=== PATIENT | male | born 1965 | race Caucasian/White ===

== ENCOUNTER → 2016-03-16 | Outpatient (CLI) | payer MEDICARE, OTHER ==
--- NOTE | 2016-03-16 18:11 | XR ---
EXAMINATION TYPE: XR hand complete RT DATE OF EXAM: 03/16/2016 6:02 PM COMPARISON: NONE HISTORY: Pain and swelling TECHNIQUE: 3 views FINDINGS: I see no fracture nor dislocation. Metacarpals are intact. There is a 2 mm metallic density adjacent to the PIP joint of the middle finger. There are no erosions. IMPRESSION: Small metal foreign body in the middle finger. No fracture seen. No evidence of osteomyel itis.
== END | disposition home or self-care (01) ==
LOC: RADXRWHC 16:58
PROVIDERS: ATTEND Physician Assistant
DX: S60.452A Superficial foreign body of right middle finger, initial encounter (principal)

== ENCOUNTER → 2017-09-30 | Outpatient (CLI) | payer MEDICARE, OTHER | END | disposition home or self-care (01) | LOC: LABWHC1 16:22 | PROVIDERS: ATTEND Internal Medicine | DX: K50.80 Crohn's disease of both small and large intestine without complications (principal) | CPT/HCPCS: 36415; 86140 ==

== ENCOUNTER 2017-11-05 20:43 | Emergency (ER) | payer MEDICARE, OTHER ==
[2017-11-05 20:49] VITALS: BP 127/73; PULSE 67; RESP 18; TEMP 97.9
--- NOTE | 2017-11-05 21:04 | ED ---
Wound/Laceration HPI - General Source: patient, RN notes reviewed Mode of arrival: ambulatory Limitations: no limitations <Laquita Staton - Last Filed: 11/05/17 21:42> <Yamile Green - Last Filed: 11/05/17 23:08> - General Chief Complaint: Wound/Laceration Stated Complaint: thumb lac Time Seen by Provider: 11/05/17 20:50 - History of Present Illness Initial Comments: This is a 52-year-old male who presents to the emergency department with chief complaint of left thumb laceration. Patient states that at 4:30 this evening he was cutting wood with a circular saw. He states that he cut the tip of his left thumb. He states that he was able to get the bleeding under control by applying a butterfly and a bandage. States he is up-to-date with his tetanus vaccination which she reports to have received last month. Denies any other injuries or trauma. Denies numbness or tingling. Reports normal range of motion of the finger. Refuses an x-ray. Denies recent fevers or chills, chest pain or shortness of breath, abdominal pain, nausea or vomiting. (Laquita Staton) - Related Data Home Medications Medication Instructions Recorded Confirmed Diphenox-Atrop 2.5-0.025 mg 1 tab PO BID PRN 08/27/13 08/27/13 [Lomotil] HYDROcodone/APAP 7.5-325MG [[place] 1 each PO Q4H PRN 08/27/13 08/28/13 7.5-325] Ibuprofen [Motrin] 800 mg PO Q8HR PRN 08/27/13 08/28/13 Insulin Aspart [NovoLOG ACHS 08/27/13 08/28/13 (formulary)] Insulin Glargine [Lantus] 10 unit SQ DAILY 08/27/13 08/28/13 Levothyroxine Sodium [Synthroid] 25 mcg PO DAILY 08/27/13 08/28/13 Previous Rx's Medication Instructions Recorded Cefuroxime Axetil [Ceftin] 500 mg PO BID #14 tablet 08/31/13 Multivitamins, Thera [Multivitamin 1 each PO DAILY@1200 #30 tablet 08/31/13 (formulary)] Allergies Allergy/AdvReac Type Severity Reaction Status Date / Time No Known Allergies Allergy Verified 11/05/17 20:50 Review of Systems ROS Other: All systems not noted in ROS Statement are negative. <Laquita Staton - Last Filed: 11/05/17 21:42> ROS Other: All systems not noted in ROS Statement are negative. <Yamile Green P - Last Filed: 11/05/17 23:08> ROS Statement: Those systems with pertinent positive or pertinent negative responses have been documented in the HPI. Past Medical History Past Medical History: Diabetes Mellitus Additional Past Medical History / Comment(s): colitis, one kidney congenital History of Any Multi-Drug Resistant Organisms: None Reported Past Surgical History: Bowel Resection Additional Past Surgical History / Comment(s): Patient states he had a j-pouch in 1998 Past Anesthesia/Blood Transfusion Reactions: No Reported Reaction Past Psychological History: No Psychological Hx Reported Smoking Status: Never smoker Past Alcohol Use History: Rare Past Drug Use History: Marijuana <Laquita Staton - Last Filed: 11/05/17 21:42> General Exam Limitations: no limitations <Laquita Staton - Last Filed: 11/05/17 21:42> <Yamile Green P - Last Filed: 11/05/17 23:08> - General Exam Comments Initial Comments: General: Awake and alert, well-developed; in no apparent distress. HEENT: Head atraumatic, normocephalic. Pupils are equal, round and reactive to light. Extraocular movements intact. Oropharynx moist without erythema or exudate. Neck: Supple. Normal ROM. Cardiovascular: Regular rate and rhythm. No murmurs, rubs or gallops. Chest symmetrical. Respiratory: Lungs clear to auscultation bilaterally. No wheezes, rales or rhonchi. Normal respiratory effort with no use of accessory muscles. Musculoskeletal: Normal ROM of left thumb. Approximately 1 cm jagged laceration distal tip of the left thumb. No active bleeding. Sensation is intact. Radial pulses are 2+ equal and palpable bilaterally. Skin: [place], warm and dry with laceration as noted above. Neurological: Alert and oriented x3. CN II-XII grossly intact. Speech is fluent and answers are appropriate. No focal neuro deficits. Psychiatric: Normal mood and affect. No overt signs of depression or anxiety noted. (Laquita Staton) Vital Signs 11/05/17 20:46 Temperature 97.9 F Pulse Rate 67 Respiratory 18 Rate Blood Pressure 127/73 O2 Sat by Pulse 100 Oximetry Procedures - Laceration Laceration #1 Consent Obtained: verbal consent Indication: laceration Site: hand (Distal left thumb) Size (cm): 1 Description: flap, irregular Depth: simple, single layer Anesthetic Used: lidocaine 1% Anesthesia Technique: local infiltration Amount (mls): 1 Pre-repair: wound explored, irrigated extensively, deep structures intact Type of Sutures: nylon Size of Sutures: 4-0 Number of Sutures: 2 Technique: simple, interrupted Patient Tolerated Procedure: well, no complications <Laquita Staton - Last Filed: 11/05/17 21:42> Medical Decision Making <Laquita Staton - Last Filed: 11/05/17 21:42> <Yamile Green - Last Filed: 11/05/17 23:08> - Medical Decision Making This is a 52-year-old male who presents to the emergency department with chief complaint of left thumb laceration. Patient sustained a jagged laceration to the distal tip of his left thumb. Normal range of motion and is neurovascularly intact. 2 sutures are placed and patient tolerated well without complication. Patient refused an x-ray of the finger. He refuses antibiotics. Vitals are stable and patient is no acute distress. He will be discharged home at this time. Recommended having sutures removed in 10-14 days. He is in agreement with plan. All questions answered. (Laquita Staton) I was available for consultation in the emergency department. The history and physical exam were done by the midlevel provider. I was consulted for this patient's care. I reviewed the case with the midlevel provider and based on their presentation of the patient, I agree with the assessment, medical decision making and plan of care as documented. (Yamile Green) Disposition Is patient prescribed a controlled substance at d/c from ED?: No Time of Disposition: 21:46 <Laquita Staton - Last Filed: 11/05/17 21:42> <Yamile Green - Last Filed: 11/05/17 23:08> Clinical Impression: Thumb laceration Disposition: HOME SELF-CARE Condition: Good Instructions: Finger Laceration (ED) Additional Instructions: Please have sutures removed in 10-14 days. Please monitor for any signs of infection. Please follow up with primary care provider within 1-2 days. Return to emergency department if symptoms should worsen or any concerns arise. Referrals: Zachary Marte MD [Primary Care Provider] - 1-2 days
== END 2017-11-05 21:58 | disposition home or self-care (01) ==
LOC: EC 20:43
DX: S61.012A Laceration without foreign body of left thumb without damage to nail, initial encounter (principal); E11.9 Type 2 diabetes mellitus without complications; Z79.4 Long term (current) use of insulin; Z79.899 Other long term (current) drug therapy; W31.2XXA Contact with powered woodworking and forming machines, initial encounter; Y93.89 Activity, other specified
CPT/HCPCS: 12001; 99282

== ENCOUNTER 2017-12-09 16:47 | Emergency (ER) | payer MEDICARE, OTHER ==
[2017-12-09] MEDS ORDERED: SODIUM CHLORIDE 0.9% 1,000 ML IV ONE ×2 (17:51→20:02)
[2017-12-09] MEDS ORDERED: KETOROLAC 30 MG/ML 1 ML VIAL IVP STA (17:51)
[2017-12-09] MEDS ORDERED: ONDANSETRON 4 MG/2 ML VIAL IVP STA (17:51)
--- NOTE | 2017-12-09 17:59 | ED ---
General Adult HPI - General Chief complaint: Abdominal Pain Stated complaint: Pain in right side, headache, Diabetic Time Seen by Provider: 12/09/17 17:30 Source: patient Mode of arrival: wheelchair Limitations: no limitations - History of Present Illness Initial comments: 52-year-old male with past medical history of type 1 diabetes, chronic migraines ,ulcerative coliitis and one kidney (congenital malformation) presenting today for chief complaint of right-sided flank plain and headache. Patient states that he woke up at 3AM with right-sided flank pain, he stated that he has had blood in his urine for the past 2 months as been seen by his primary care who has done imaging and laboratory studies, he states that they stated he did not need urology f/u at this time. Pt describes the pain as sharp without radiation. Pt states that the pain is gone now. Pt admits to headache, he states it is not the worse headache of his life and came on gradually. Pt has had episodes of vomiting not allowing him to keep down pain medication to alleviate the headache. Pt states that he usually vomits and is sensitive to light with his migraines. Pt was concerned about the right sided pain in the middle of the night so he presented for evaluation. Pt denies current right flank pain. Pt denies fever, chills, urgency, frequency, dysuria, abdominal pain , chest pain, dizziness, shortness of breath, palpitations, nuchal rigidity, speech/gait changes, parathesias/muscle weakness of the upper or lower extremities, facial asymmetry or any other associated symptoms. Upon arrival pt VS stable. - Related Data Home Medications Medication Instructions Recorded Confirmed Diphenox-Atrop 2.5-0.025 mg 1 tab PO BID PRN 08/27/13 12/09/17 [Lomotil] Ibuprofen [Motrin] 800 mg PO Q8HR PRN 08/27/13 12/09/17 Insulin Aspart [NovoLOG See Protocol SQ TID 08/27/13 12/09/17 (formulary)] Insulin Glargine [Lantus] 13 unit SQ HS 08/27/13 12/09/17 Levothyroxine Sodium [Synthroid] 25 mcg PO DAILY 08/27/13 12/09/17 Adalimumab [Humira Pen] 40 mg SQ FR 12/09/17 12/09/17 Allergies Allergy/AdvReac Type Severity Reaction Status Date / Time No Known Allergies Allergy Verified 12/09/17 17:58 Review of Systems ROS Statement: Those systems with pertinent positive or pertinent negative responses have been documented in the HPI. ROS Other: All systems not noted in ROS Statement are negative. Constitutional: Denies: fever, chills, night sweats Eyes: Denies: eye pain, vision change ENT: Denies: ear pain, throat pain, hearing loss Respiratory: Denies: cough, dyspnea, wheezes, hemoptysis, stridor Cardiovascular: Denies: chest pain, palpitations, dyspnea on exertion, orthopnea , edema Endocrine: Denies: fatigue Gastrointestinal: Reports: nausea, vomiting. Denies: abdominal pain, diarrhea, constipation, hematemesis, melena, hematochezia Genitourinary: Reports: hematuria (x2 months). Denies: urgency, dysuria, frequency Musculoskeletal: Reports: as per HPI (right sided flank pain), back pain Skin: Denies: rash, lesions Neurological: Denies: headache, weakness, numbness, paresthesias, confusion Past Medical History Past Medical History: Diabetes Mellitus Additional Past Medical History / Comment(s): colitis, one kidney congenital History of Any Multi-Drug Resistant Organisms: None Reported Past Surgical History: Bowel Resection Additional Past Surgical History / Comment(s): Patient states he had a j-pouch in 1998 Past Anesthesia/Blood Transfusion Reactions: No Reported Reaction Past Psychological History: No Psychological Hx Reported Smoking Status: Never smoker Past Alcohol Use History: Rare Past Drug Use History: Marijuana General Exam - General Exam Comments Initial Comments: General: The patient is awake and alert, in no distress, and does not appear acutely ill. Eye: Pupils are equal, round and reactive to light, extra-ocular movements are intact. No nystagmus. There is normal conjunctiva bilaterally. No signs of icterus. Ears, nose, mouth and throat: There are moist mucous membranes and no oral lesions. Neck: The neck is supple, there is no tenderness or JVD. Cardiovascular: There is a regular rate and rhythm. No murmur, rub or gallop is appreciated. Respiratory: Lungs are clear to auscultation, respirations are non-labored, breath sounds are equal. No wheezes, stridor, rales, or rhonchi. Gastrointestinal: Soft, non-distended, non-tender abdomen without masses or organomegaly noted. There is no rebound or guarding present. No CVA tenderness. Bowel sounds are unremarkable. Musculoskeletal: Normal ROM, no tenderness. Strength 5/5. Sensation intact. radial pulses equal bilaterally 2+. Neurological: A&O x 3. CN II-XII intact, There are no obvious motor or sensory deficits. Coordination appears grossly intact. Speech is normal. Skin: Skin is warm and dry and no rashes or lesions are noted. Psychiatric: Cooperative, appropriate mood & affect, normal judgment. Limitations: no limitations Course Vital Signs 12/09/17 12/09/17 12/09/17 16:58 19:30 20:34 Temperature 98 F Pulse Rate 86 106 H 65 Respiratory 18 20 18 Rate Blood Pressure 111/75 105/65 113/66 O2 Sat by Pulse 98 99 98 Oximetry 12/09/17 21:39 Temperature 97.9 F Pulse Rate 70 Respiratory 18 Rate Blood Pressure 127/86 O2 Sat by Pulse 97 Oximetry Medical Decision Making - Medical Decision Making 52yo male with cc of right flank pain, pt appears well, nontoxic. Afebrile upon arrival, HR WNL. Pt denies current symptoms of right flank. Pt admits to CANELA, dull aching. No focal neurological deficits, or CVA tenderness. Pt given fluids and toradol. UA revealed RBC, WBC/leukocyteestersse and no nitrates. Pt denies urinary symptoms. Culture pending. CBC unremarkable. Cr WNL. KUB (-). CT abdomen pelvis revealed no abnormalities of right kidney, no stranding. No renal calculi. Case discussed with Dr. Bernardo who reviewed all labs findings, case discussed in detail. Dr. Bernardo agreed with impression and plan. At this time we feel pt is stable for discharge with primary care f/u in 1-2 days as well as urology f/u in next 2-3 days. scripts for + WBC in UA for possible underlying UTI was not given to patient prior to d/c. Prescription was called over to patient preferred pharmacy. Pr called and I spoke to Mr Coreas personally who is aware of the prescription for keflex 500mg QID. - Lab Data Result diagrams: 12/09/17 17:27 12/09/17 17:27 Lab Results 12/09/17 12/09/17 12/09/17 Range/Units 17:27 17:27 17:27 WBC 9.5 (3.8-10.6) k/uL RBC 4.83 (4.30-5.90) m/uL Hgb 14.6 (13.0-17.5) gm/dL Hct 44.4 (39.0-53.0) % MCV 92.0 (80.0-100.0) fL MCH 30.2 (25.0-35.0) pg MCHC 32.9 (31.0-37.0) g/dL RDW 12.9 (11.5-15.5) % Plt Count 237 (150-450) k/uL Neutrophils % 86 % Lymphocytes % 9 % Monocytes % 3 % Eosinophils % 1 % Basophils % 0 % Neutrophils # 8.1 H (1.3-7.7) k/uL Lymphocytes # 0.9 L (1.0-4.8) k/uL Monocytes # 0.3 (0-1.0) k/uL Eosinophils # 0.1 (0-0.7) k/uL Basophils # 0.0 (0-0.2) k/uL Sodium 139 (137-145) mmol/L Potassium 4.5 (3.5-5.1) mmol/L Chloride 106 (98-107) mmol/L Carbon Dioxide 26 (22-30) mmol/L Anion Gap 7 mmol/L BUN 11 (9-20) mg/dL Creatinine 0.91 (0.66-1.25) mg/dL Est GFR (CKD-EPI)AfAm >90 (>60 ml/min/1.73 sqM) Est GFR (CKD-EPI)NonAf >90 (>60 ml/min/1.73 sqM) Glucose 181 H (74-99) mg/dL Calcium 9.0 (8.4-10.2) mg/dL Total Bilirubin 1.0 (0.2-1.3) mg/dL AST 23 (17-59) U/L ALT 26 (21-72) U/L Alkaline Phosphatase 77 (38-126) U/L Total Protein 6.5 (6.3-8.2) g/dL Albumin 3.2 L (3.5-5.0) g/dL Urine Color Urine Appearance (Clear) Urine pH (5.0-8.0) Ur Specific [place] (1.001-1.035) Urine Protein (Negative) Urine Glucose (UA) (Negative) Urine Ketones (Negative) Urine Blood (Negative) Urine Nitrite (Negative) Urine Bilirubin (Negative) Urine Urobilinogen (<2.0) mg/dL Ur Leukocyte Esterase (Negative) Urine RBC (0-5) /hpf Urine WBC (0-5) /hpf Urine Mucus (None) /hpf Acetone, Qual Negative (Negative) 12/09/17 Range/Units 19:23 WBC (3.8-10.6) k/uL RBC (4.30-5.90) m/uL Hgb (13.0-17.5) gm/dL Hct (39.0-53.0) % MCV (80.0-100.0) fL MCH (25.0-35.0) pg MCHC (31.0-37.0) g/dL RDW (11.5-15.5) % Plt Count (150-450) k/uL Neutrophils % % Lymphocytes % % Monocytes % % Eosinophils % % Basophils % % Neutrophils # (1.3-7.7) k/uL Lymphocytes # (1.0-4.8) k/uL Monocytes # (0-1.0) k/uL Eosinophils # (0-0.7) k/uL Basophils # (0-0.2) k/uL Sodium (137-145) mmol/L Potassium (3.5-5.1) mmol/L Chloride (98-107) mmol/L Carbon Dioxide (22-30) mmol/L Anion Gap mmol/L BUN (9-20) mg/dL Creatinine (0.66-1.25) mg/dL Est GFR (CKD-EPI)AfAm (>60 ml/min/1.73 sqM) Est GFR (CKD-EPI)NonAf (>60 ml/min/1.73 sqM) Glucose (74-99) mg/dL Calcium (8.4-10.2) mg/dL Total Bilirubin (0.2-1.3) mg/dL AST (17-59) U/L ALT (21-72) U/L Alkaline Phosphatase (38-126) U/L Total Protein (6.3-8.2) g/dL Albumin (3.5-5.0) g/dL Urine Color Red Urine Appearance Cloudy (Clear) Urine pH 5.5 (5.0-8.0) Ur Specific [place] 1.019 (1.001-1.035) Urine Protein 2+ H (Negative) Urine Glucose (UA) 3+ H (Negative) Urine Ketones 2+ H (Negative) Urine Blood Large H (Negative) Urine Nitrite Negative (Negative) Urine Bilirubin Negative (Negative) Urine Urobilinogen <2.0 (<2.0) mg/dL Ur Leukocyte Esterase Moderate H (Negative) Urine RBC >182 H (0-5) /hpf Urine WBC 47 H (0-5) /hpf Urine Mucus Many H (None) /hpf Acetone, Qual (Negative) Disposition Clinical Impression: Hematuria, Headache, Flank pain Disposition: HOME SELF-CARE Condition: Good Instructions: Hematuria (ED) Additional Instructions: Please use medication as discussed. Please follow-up with family doctor in the next 2 days, please follow-up with urology for blood in urine in the next 2-3 days, with Dr. Briceño. Please return to emergency room if the symptoms increase or worsen or for any other concerns. Is patient prescribed a controlled substance at d/c from ED?: No Referrals: Zachary Marte MD [Primary Care Provider] - 1-2 days Kranthi Briceño MD [STAFF PHYSICIAN] - 1-2 days Time of Disposition: 21:24
[2017-12-09 18:09] LABS: ALT 26 U/L (21-72); AST 23 U/L (17-59); Albumin 3.2 g/dL (3.5-5.0); Alkaline Phosphatase 77 U/L (38-126); Anion Gap 7 mmol/L; Blood Urea Nitrogen 11 mg/dL (9-20); Carbon Dioxide 26 mmol/L (22-30); Chloride 106 mmol/L (98-107); Glucose 181 mg/dL (74-99); Potassium 4.5 mmol/L (3.5-5.1); Sodium 139 mmol/L (137-145); Total Protein 6.5 g/dL (6.3-8.2)
[2017-12-09 18:13] LABS: Basophils % (A) 0 %; Eosinophils # (A) 0.1 k/uL (0-0.7); Eosinophils % (A) 1 %; HCT 44.4 % (39.0-53.0); HGB 14.6 gm/dL (13.0-17.5); Lymphocytes # (A) 0.9 k/uL (1.0-4.8); Lymphocytes % (A) 9 %; MCH 30.2 pg (25.0-35.0); MCHC 32.9 g/dL (31.0-37.0); Mean Platelet Volume 7.2; Monocytes # (A) 0.3 k/uL (0-1.0); Monocytes % (A) 3 %; Neutrophils # (A) 8.1 k/uL (1.3-7.7); Neutrophils % (A) 86 %; Platelet Count 237 k/uL (150-450); RBC 4.83 m/uL (4.30-5.90); RDW 12.9 % (11.5-15.5); WBC 9.5 k/uL (3.8-10.6)
--- NOTE | 2017-12-09 18:30 | XR ---
EXAMINATION TYPE: XR KUB DATE OF EXAM: 12/09/2017 COMPARISON: 03/09/2009 HISTORY: Right-sided flank pain TECHNIQUE: 2 views FINDINGS: There is no sign of intestinal obstruction or pneumoperitoneum. Fecal pattern is normal. Shalini ng bases are clear. There are no pathologic calcifications. IMPRESSION: Nonacute abdomen.
[2017-12-09 19:48] LABS: Appearance,Urine Cloudy (Clear); Bilirubin,Urine Negative (Negative); Blood,Urine Large (Negative); Color,Urine Red; Glucose,Urine (UA) 3+ (Negative); Leukocyte Esterase,Urine Moderate (Negative); Mucus,Urine Many /hpf; Nitrite,Urine Negative (Negative); PH, Urine 5.5 (5.0-8.0); Protein,Urine 2+ (Negative); RBC,Urine >182 /hpf (0-5); Specific Gravity,Urine 1.019 (1.001-1.035); Urobilinogen,Urine <2.0 mg/dL (<2.0)
[2017-12-09 19:53] LABS: Ketones,Urine 2+ (Negative)
[2017-12-09 20:36] VITALS: RESP 18
--- NOTE | 2017-12-09 20:59 | CT ---
EXAMINATION TYPE: CT abdomen pelvis w con DATE OF EXAM: 12/09/2017 COMPARISON: None HISTORY: rt flank pain/back pain/nausea/vomiting. pt has a rt kidney CT DLP: 678.1 mGycm Automated exposure control for dose reduction was used. TECHNIQUE: Helical acquisition of images was performed from the lung bases through the pelvis. CONTRAST: Performed without Oral Contrast and with IV Contrast, patient injected with 100 mL of Isovue 300. FINDINGS: Lung bases are clear. There is no pleural effusion. Heart size is normal. There is no pericardial eff usion. Liver spleen pancreas appear normal. Bile ducts are not dilated. Stomach appears normal. Gallbladder appears normal. There are clips in the right mid abdomen probably on the cecum. There is a single right kidney. Right kidney shows normal contrast opacification. There is no hydrone phrosis. There is no retroperitoneal adenopathy. Latter distends smoothly. There is no mesenteric skyler nopathy or edema. I see no intestinal wall thickening. There is previous surgery on the rectosigmoid colon. There is no inguinal hernia. There is no sign of free air. There is no ascites. Lumbar spine i s intact. Bony pelvis appears intact. IMPRESSION: SINGLE RIGHT KIDNEY WITH COMPENSATORY HYPERTROPHY. NO EVIDENCE OF RENAL MASS OR OBSTRUCTION. PREVIOUS LARGE BOWEL SURGERY. NO SIGN OF AN ACUTE ABDOMEN.
[2017-12-09 21:39] VITALS: BP 127/86; PULSE 70; TEMP 97.9
== END 2017-12-09 21:39 | disposition home or self-care (01) ==
LOC: EC 16:47
DX: R31.9 Hematuria, unspecified (principal); R51 Headache; H53.419 Scotoma involving central area, unspecified eye; R11.2 Nausea with vomiting, unspecified; M54.9 Dorsalgia, unspecified; Q60.0 Renal agenesis, unilateral; E10.9 Type 1 diabetes mellitus without complications; Z87.19 Personal history of other diseases of the digestive system; Z86.69 Personal history of other diseases of the nervous system and sense organs; Z98.890 Other specified postprocedural states; Z79.4 Long term (current) use of insulin; Z79.899 Other long term (current) drug therapy
CPT/HCPCS: 51798; 36415; 80053; 82009; 85025; 81001; 87086; 74018; 74177; 99284; 96374; 96375; 96361 ×2; J2405; J1885; Q9967

== ENCOUNTER → 2018-02-05 | Outpatient (CLI) | payer MEDICARE, OTHER ==
--- NOTE | 2018-02-05 10:44 | CT ---
EXAMINATION TYPE: CT abdomen pelvis wo con DATE OF EXAM: 02/05/2018 COMPARISON: 12/09/2017 HISTORY: Gross hematuria CT DLP: 311.80 mGycm Automated exposure control for dose reduction was used. TECHNIQUE: Helical acquisition of images was performed from the lung bases through the pelvis. FINDINGS: LUNG BASES: Small bleb is seen in the right lung base. LIVER/GB: Unenhanced morphology of the liver is unremarkable. Gallbladder demonstrates no cholelithia sis. PANCREAS: Unremarkable unenhanced morphology. SPLEEN: No splenomegaly. ADRENALS: No significant abnormality is seen. KIDNEYS: Again there is hypertrophy of the solitary right kidney. Bowel prolapses into the left renal fossa. No right-sided hydronephrosis or nephrolithiasis. ADENOPATHY: Given the limitation of lack of intravenous contrast there are no greater than 1 cm shor t axis lymph nodes in the abdomen or pelvis. There are few pelvic lymph nodes such as on series 3 milind ge 2018 measuring 7 mm on the right and on image 119 on the left measuring 6 mm that are prominent fo r the location. There are also nonenlarged lymph nodes seen scattered along the external and internal iliac chains. Nonenlarged scattered mesenteric lymph nodes are also noted predominantly within the c entral mesentery of the mid abdomen such as on series 3 image 80 and 83. REPRODUCTIVE ORGANS: Prostate gland is heterogenous containing central zone calcifications. URINARY BLADDER: Decompressed and incompletely evaluated. OSSEOUS STRUCTURES: Scattered nonspecific sclerotic foci are seen within the pelvis, most commonly r elated to small bone islands. Numerous lucent regions are seen within the pelvis CTs measuring up to 1 cm on the right on series 3 image 87 and 9 mm on the left on image 78. Very minimal wedging of the T12 vertebral body is stable from the prior. There is straightening of usual lumbar lordosis which ma y be on the basis of muscular sprain and/or spasm. BOWEL: There is subtotal colonic resection with what appears to be an ileocolic anastomosis and deco mpression of bowel at the anastomotic site in the low pelvis and right upper quadrant limiting evalua tion. No dilated bowel to suggest anastomotic stricture. Small bowel feces sign is seen throughout sc attered loops of small bowel indicative of increased transit time. Overall bowel is limited without o ral contrast administration. OTHER: Abdominal aorta is of normal course and caliber. IMPRESSION: 1. SOLITARY ENLARGED RIGHT KIDNEY WITH NO EVIDENCE OF NEPHROLITHIASIS OR HYDRONEPHROSIS GIVEN THIS PA TIENT'S COMPLAINT OF HEMATURIA. THE BOWEL IS DECOMPRESSED AND INCOMPLETELY EVALUATED. BARIUM, URINARY BLADDER ULTRASOUND, OR DIRECT VISUALIZATION COULD BE PERFORMED FOR FURTHER EVALUATION. 2. MULTIPLE LUCENT LESIONS WITHIN THE PELVIS MEASURING UP TO 1 CM ON THE RIGHT AND 9 MM ON THE LEFT. CONSIDERATION SHOULD BE GIVEN TO MULTIPLE MYELOMA.
== END | disposition home or self-care (01) ==
LOC: RADCTMAIN 07:59
PROVIDERS: ATTEND Urology
DX: N28.81 Hypertrophy of kidney (principal); M89.9 Disorder of bone, unspecified
CPT/HCPCS: 74176

== ENCOUNTER 2018-03-17 10:22 | Emergency (ER) | payer MEDICARE, OTHER ==
[2018-03-17 10:49] VITALS: RESP 18
[2018-03-17] MEDS ORDERED: SODIUM CHLORIDE 0.9% 1,000 ML IV STA ×2 (11:44)
[2018-03-17] MEDS ORDERED: ACETAMINOPHEN TAB 500 MG TAB PO STA (11:44)
[2018-03-17] MEDS ORDERED: ONDANSETRON 4 MG/2 ML VIAL IVP STA (11:44)
[2018-03-17] MEDS ORDERED: SODIUM CHLORIDE 0.9% 500 ML 500 ML IV STA (11:44)
[2018-03-17] MEDS ORDERED: KETOROLAC 30 MG/ML 1 ML VIAL IVP STA (11:46)
[2018-03-17 12:29] LABS: Basophils % (A) 0 %; Eosinophils % (A) 1 %; HCT 44.1 % (39.0-53.0); Lymphocytes # (A) 0.5 k/uL (1.0-4.8); Lymphocytes % (A) 7 %; MCH 30.9 pg (25.0-35.0); MCHC 34.1 g/dL (31.0-37.0); MCV 90.7 fL (80.0-100.0); Mean Platelet Volume 7.2; Monocytes # (A) 0.5 k/uL (0-1.0); Monocytes % (A) 8 %; Neutrophils # (A) 5.7 k/uL (1.3-7.7); Neutrophils % (A) 83 %; Platelet Count 226 k/uL (150-450); RBC 4.86 m/uL (4.30-5.90); RDW 13.2 % (11.5-15.5); WBC 6.8 k/uL (3.8-10.6)
[2018-03-17 12:32] LABS: ALT 30 U/L (21-72); AST 24 U/L (17-59); Albumin 3.5 g/dL (3.5-5.0); Alkaline Phosphatase 75 U/L (38-126); Anion Gap 8 mmol/L; Blood Urea Nitrogen 10 mg/dL (9-20); Calcium 8.8 mg/dL (8.4-10.2); Carbon Dioxide 23 mmol/L (22-30); Chloride 104 mmol/L (98-107); Glucose 342 mg/dL (74-99); Magnesium 1.4 mg/dL (1.6-2.3); Phosphorus 3.1 mg/dL (2.5-4.5); Potassium 5.2 mmol/L (3.5-5.1); Sodium 135 mmol/L (137-145); Total Bilirubin 0.9 mg/dL (0.2-1.3); Total Protein 6.7 g/dL (6.3-8.2)
[2018-03-17 12:52] LABS: Creatine Kinase 81 U/L (55-170)
--- NOTE | 2018-03-17 13:00 | ED ---
URI HPI - General Chief Complaint: Upper Respiratory Infection Stated Complaint: Cough, sore throat, weakness Time Seen by Provider: 03/17/18 11:22 Source: patient, RN notes reviewed, old records reviewed Mode of arrival: ambulatory Limitations: no limitations - History of Present Illness Initial Comments: This is a 52-year-old male the ER for evaluation. She presents today for evaluation regards to weakness. Fever. Sore throat. Congestion. Patient does have underlying history of diabetes no other significant medical conditions. No recent change in medication. Patient states he has felt feverish with nausea no vomiting no diarrhea. No abdominal pain no chest pain or shortness of breath. No modifying factors for symptoms, patient states he has felt somewhat is poor at this time last year. MD Complaint: fever, cough, sore throat, nasal congestion -: days(s) Severity: mild Severity scale (1-10): 1 Quality: aching Consistency: constant Improves With: nothing Worsens With: nothing Context: new medications Associated Symptoms: denies other symptoms Treatments Prior to Arrival: none - Related Data Home Medications Medication Instructions Recorded Confirmed Diphenox-Atrop 2.5-0.025 mg 1 tab PO BID PRN 08/27/13 03/17/18 [Lomotil] Insulin Aspart [NovoLOG See Protocol SQ TID 08/27/13 03/17/18 (formulary)] Adalimumab [Humira Pen] 40 mg SQ FR 12/09/17 03/17/18 Cough Syrup With Codiene 5 ml PO DAILY 03/17/18 03/17/18 Insulin Glargine [Lantus] 10 unit SQ HS 03/17/18 03/17/18 Levothyroxine Sodium [Synthroid] 88 mcg PO DAILY 03/17/18 03/17/18 [facility] Cold/Flu 1 cap PO BID 03/17/18 03/17/18 Previous Rx's Medication Instructions Recorded Oseltamivir [Tamiflu] 75 mg PO Q12HR #14 cap 03/17/18 Allergies Allergy/AdvReac Type Severity Reaction Status Date / Time No Known Allergies Allergy Verified 03/17/18 11:09 Review of Systems ROS Statement: Those systems with pertinent positive or pertinent negative responses have been documented in the HPI. ROS Other: All systems not noted in ROS Statement are negative. Past Medical History Past Medical History: Diabetes Mellitus Additional Past Medical History / Comment(s): colitis, one kidney congenital History of Any Multi-Drug Resistant Organisms: None Reported Past Surgical History: Bowel Resection Additional Past Surgical History / Comment(s): Patient states he had a j-pouch in 1998 Past Anesthesia/Blood Transfusion Reactions: No Reported Reaction Past Psychological History: No Psychological Hx Reported Smoking Status: Never smoker Past Alcohol Use History: Rare Past Drug Use History: Marijuana General Exam Limitations: no limitations General appearance: alert, in no apparent distress Head exam: Present: atraumatic, normocephalic, normal inspection Eye exam: Present: normal appearance, PERRL, EOMI. Absent: scleral icterus, conjunctival injection, periorbital swelling ENT exam: Present: normal exam, mucous membranes moist Neck exam: Present: normal inspection. Absent: tenderness, meningismus, lymphadenopathy Respiratory exam: Present: normal lung sounds bilaterally. Absent: respiratory distress, wheezes, rales, rhonchi, stridor Cardiovascular Exam: Present: regular rate, normal rhythm, normal heart sounds. Absent: systolic murmur, diastolic murmur, rubs, gallop, clicks GI/Abdominal exam: Present: soft, normal bowel sounds. Absent: distended, tenderness, guarding, rebound, rigid Extremities exam: Present: normal inspection, full ROM, normal capillary refill. Absent: tenderness, pedal edema, joint swelling, calf tenderness Back exam: Present: normal inspection Neurological exam: Present: alert, oriented X3, CN II-XII intact Psychiatric exam: Present: normal affect, normal mood Skin exam: Present: warm, dry, intact, normal color. Absent: rash Course Vital Signs 03/17/18 10:46 Temperature 99.3 F Pulse Rate 94 Respiratory 18 Rate Blood Pressure 114/78 O2 Sat by Pulse 97 Oximetry - Reevaluation(s) Reevaluation #1: 03/17/18 13:00 medical record is reviewed, noncontributory Medical Decision Making - Medical Decision Making 49 female the ER positive influenza, patient be discharged home on Tamiflu. Patient can be discharged. At this time feeling appropriate - Lab Data Result diagrams: 03/17/18 11:58 03/17/18 11:58 Lab Results 03/17/18 03/17/18 03/17/18 Range/Units 11:58 11:58 11:58 WBC 6.8 (3.8-10.6) k/uL RBC 4.86 (4.30-5.90) m/uL Hgb 15.0 (13.0-17.5) gm/dL Hct 44.1 (39.0-53.0) % MCV 90.7 (80.0-100.0) fL MCH 30.9 (25.0-35.0) pg MCHC 34.1 (31.0-37.0) g/dL RDW 13.2 (11.5-15.5) % Plt Count 226 (150-450) k/uL Neutrophils % 83 % Lymphocytes % 7 % Monocytes % 8 % Eosinophils % 1 % Basophils % 0 % Neutrophils # 5.7 (1.3-7.7) k/uL Lymphocytes # 0.5 L (1.0-4.8) k/uL Monocytes # 0.5 (0-1.0) k/uL Eosinophils # 0.0 (0-0.7) k/uL Basophils # 0.0 (0-0.2) k/uL Sodium 135 L (137-145) mmol/L Potassium 5.2 H (3.5-5.1) mmol/L Chloride 104 (98-107) mmol/L Carbon Dioxide 23 (22-30) mmol/L Anion Gap 8 mmol/L BUN 10 (9-20) mg/dL Creatinine 1.05 (0.66-1.25) mg/dL Est GFR (CKD-EPI)AfAm >90 (>60 ml/min/1.73 sqM) Est GFR (CKD-EPI)NonAf 81 (>60 ml/min/1.73 sqM) Glucose 342 H (74-99) mg/dL Plasma Lactic Acid Esau (0.7-2.0) mmol/L Calcium 8.8 (8.4-10.2) mg/dL Phosphorus 3.1 (2.5-4.5) mg/dL Magnesium 1.4 L (1.6-2.3) mg/dL Total Bilirubin 0.9 (0.2-1.3) mg/dL AST 24 (17-59) U/L ALT 30 (21-72) U/L Alkaline Phosphatase 75 (38-126) U/L Total Creatine Kinase 81 (55-170) U/L CK-MB (CK-2) 0.3 (0.0-2.4) ng/mL CK-MB (CK-2) Rel Index 0.4 Troponin I <0.012 (0.000-0.034) ng/mL Total Protein 6.7 (6.3-8.2) g/dL Albumin 3.5 (3.5-5.0) g/dL Urine Color Urine Appearance (Clear) Urine pH (5.0-8.0) Ur Specific [place] (1.001-1.035) Urine Protein (Negative) Urine Glucose (UA) (Negative) Urine Blood (Negative) Urine Nitrite (Negative) Urine Bilirubin (Negative) Urine Urobilinogen (<2.0) mg/dL Ur Leukocyte Esterase (Negative) Urine RBC (0-5) /hpf Urine Mucus (None) /hpf Acetone, Qual Negative (Negative) Influenza Type A RNA (Not Detectd) Influenza Type B (PCR) (Not Detectd) 03/17/18 03/17/18 03/17/18 Range/Units 11:58 12:30 12:30 WBC (3.8-10.6) k/uL RBC (4.30-5.90) m/uL Hgb (13.0-17.5) gm/dL Hct (39.0-53.0) % MCV (80.0-100.0) fL MCH (25.0-35.0) pg MCHC (31.0-37.0) g/dL RDW (11.5-15.5) % Plt Count (150-450) k/uL Neutrophils % % Lymphocytes % % Monocytes % % Eosinophils % % Basophils % % Neutrophils # (1.3-7.7) k/uL Lymphocytes # (1.0-4.8) k/uL Monocytes # (0-1.0) k/uL Eosinophils # (0-0.7) k/uL Basophils # (0-0.2) k/uL Sodium (137-145) mmol/L Potassium (3.5-5.1) mmol/L Chloride (98-107) mmol/L Carbon Dioxide (22-30) mmol/L Anion Gap mmol/L BUN (9-20) mg/dL Creatinine (0.66-1.25) mg/dL Est GFR (CKD-EPI)AfAm (>60 ml/min/1.73 sqM) Est GFR (CKD-EPI)NonAf (>60 ml/min/1.73 sqM) Glucose (74-99) mg/dL Plasma Lactic Acid Esau 2.0 (0.7-2.0) mmol/L Calcium (8.4-10.2) mg/dL Phosphorus (2.5-4.5) mg/dL Magnesium (1.6-2.3) mg/dL Total Bilirubin (0.2-1.3) mg/dL AST (17-59) U/L ALT (21-72) U/L Alkaline Phosphatase (38-126) U/L Total Creatine Kinase (55-170) U/L CK-MB (CK-2) (0.0-2.4) ng/mL CK-MB (CK-2) Rel Index Troponin I (0.000-0.034) ng/mL Total Protein (6.3-8.2) g/dL Albumin (3.5-5.0) g/dL Urine Color Light Red Urine Appearance Clear (Clear) Urine pH 5.5 (5.0-8.0) Ur Specific [place] 1.021 (1.001-1.035) Urine Protein Trace H (Negative) Urine Glucose (UA) 4+ H (Negative) Urine Blood Large H (Negative) Urine Nitrite Negative (Negative) Urine Bilirubin Negative (Negative) Urine Urobilinogen <2.0 (<2.0) mg/dL Ur Leukocyte Esterase Negative (Negative) Urine RBC >182 H (0-5) /hpf Urine Mucus Rare H (None) /hpf Acetone, Qual (Negative) Influenza Type A RNA Detected H (Not Detectd) Influenza Type B (PCR) Not Detected (Not Detectd) - Radiology Data Radiology results: report reviewed (S x-rays negative for acute disease), image reviewed Disposition Clinical Impression: Influenza Disposition: HOME SELF-CARE Condition: Good Instructions (If sedation given, give patient instructions): Influenza (ED) Prescriptions: Oseltamivir [Tamiflu] 75 mg PO Q12HR #14 cap Is patient prescribed a controlled substance at d/c from ED?: No Referrals: Zachary Marte MD [Primary Care Provider] - 1-2 days
[2018-03-17 13:04] LABS: Appearance,Urine Clear (Clear); Bilirubin,Urine Negative (Negative); Blood,Urine Large (Negative); Color,Urine Light Red; Glucose,Urine (UA) 4+ (Negative); Leukocyte Esterase,Urine Negative (Negative); Mucus,Urine Rare /hpf; Nitrite,Urine Negative (Negative); PH, Urine 5.5 (5.0-8.0); Protein,Urine Trace (Negative); RBC,Urine >182 /hpf (0-5); Specific Gravity,Urine 1.021 (1.001-1.035); Urobilinogen,Urine <2.0 mg/dL (<2.0)
[2018-03-17 13:05] LABS: Creatine Kinase MB 0.3 ng/mL (0.0-2.4); Troponin I <0.012 ng/mL (0.000-0.034)
[2018-03-17] MEDS ORDERED: OSELTAMIVIR 75 MG CAP PO STA (13:22)
[2018-03-17] MEDS ORDERED: DEXAMETHASONE SOD PHOSPHATE 10 MG/ML 1 ML VIAL IM STA (13:22)
[2018-03-17 13:42] LABS: Ketones,Urine 2+ (Negative)
[2018-03-17 14:16] VITALS: BP 101/64; PULSE 75; TEMP 98.1
== END 2018-03-17 14:14 | disposition home or self-care (01) ==
LOC: EC 10:22
DX: J10.1 Influenza due to other identified influenza virus with other respiratory manifestations (principal); E11.9 Type 2 diabetes mellitus without complications; Z79.4 Long term (current) use of insulin; Z79.890 Hormone replacement therapy; Z79.899 Other long term (current) drug therapy
CPT/HCPCS: 99285; 96374; 96375; 96361 ×2; 96372; 36415; 93005; 80053; 82550; 82553; 82009; 83605; 83735; 84100; 84484; 85025; 81001; 87086; 87502; J1100; J2405; J1885

== ENCOUNTER → 2018-05-27 | Outpatient (CLI) | payer MEDICARE, OTHER | END | disposition home or self-care (01) | LOC: LABWHC1 16:30 | PROVIDERS: ATTEND Internal Medicine | DX: K50.80 Crohn's disease of both small and large intestine without complications (principal) | CPT/HCPCS: 36415 ==

== ENCOUNTER → 2018-06-13 | Outpatient (CLI) | payer MEDICARE, OTHER | END | disposition home or self-care (01) | LOC: LABWHC1 17:05 | PROVIDERS: ATTEND Internal Medicine | DX: K50.80 Crohn's disease of both small and large intestine without complications (principal) | CPT/HCPCS: 36415; 87340 ==

== ENCOUNTER → 2019-03-24 | Outpatient (CLI) | payer MEDICARE, OTHER ==
[2019-03-24 11:49] LABS: Basophils % (A) 0 %; Eosinophils # (A) 0.2 k/uL (0-0.7); Eosinophils % (A) 2 %; Lymphocytes # (A) 1.4 k/uL (1.0-4.8); Lymphocytes % (A) 19 %; MCH 28.7 pg (25.0-35.0); MCHC 31.8 g/dL (31.0-37.0); MCV 90.1 fL (80.0-100.0); Mean Platelet Volume 7.5; Monocytes # (A) 0.4 k/uL (0-1.0); Monocytes % (A) 6 %; Neutrophils % (A) 71 %; Platelet Count 245 k/uL (150-450); RBC 4.55 m/uL (4.30-5.90); RDW 13.3 % (11.5-15.5); WBC 7.1 k/uL (3.8-10.6)
[2019-03-24 17:29] LABS: African American GFR (CKD) 111.8 (60.0-200.0); Albumin 3.4 g/dL (3.80-4.90); Albumin/Globulin Ratio 1.36 (1.60-3.17); Anion Gap 4.5 mmol/L (4.00-12.00); BUN/Creat Ratio 11.11 Ratio (12.00-20.00); C Reactive Protein 2.7 mg/dL (0.0-0.8); Calcium 8.7 mg/dL (8.7-10.3); Carbon Dioxide 30.5 mmol/L (21.6-31.8); Globulin 2.5 g/dL (1.6-3.3); Non-African American GFR(CKD) 96.5 (60.0-200.0); Potassium 4.4 mmol/L (3.5-5.5); Total Bilirubin 0.5 mg/dL (0.3-1.2); Total Protein 5.9 g/dL (6.2-8.2)
== END | disposition home or self-care (01) ==
LOC: LABWHC1 10:33
PROVIDERS: ATTEND Physician Assistant
DX: K50.80 Crohn's disease of both small and large intestine without complications (principal)
CPT/HCPCS: 36415; 80053; 83993; 85025; 86140

== ENCOUNTER → 2019-12-04 | Outpatient (CLI) | payer MEDICARE, OTHER ==
[2019-12-04 17:46] LABS: Basophils # (A) 0.1 k/uL (0-0.2); Basophils % (A) 1 %; Eosinophils # (A) 0.3 k/uL (0-0.7); Eosinophils % (A) 3 %; HCT 41.4 % (39.0-53.0); HGB 13.7 gm/dL (13.0-17.5); Lymphocytes # (A) 3.4 k/uL (1.0-4.8); Lymphocytes % (A) 34 %; MCH 30.8 pg (25.0-35.0); MCHC 33.1 g/dL (31.0-37.0); MCV 93.3 fL (80.0-100.0); Mean Platelet Volume 7.6; Monocytes # (A) 0.5 k/uL (0-1.0); Monocytes % (A) 5 %; Neutrophils # (A) 5.5 k/uL (1.3-7.7); Neutrophils % (A) 56 %; Platelet Count 249 k/uL (150-450); RBC 4.43 m/uL (4.30-5.90); RDW 13.5 % (11.5-15.5); WBC 9.9 k/uL (3.8-10.6)
== END | disposition home or self-care (01) ==
LOC: LABWHC1 16:26
PROVIDERS: ATTEND Physician Assistant
DX: K50.80 Crohn's disease of both small and large intestine without complications (principal); Z91.011 Allergy to milk products
CPT/HCPCS: 36415; 85025

== ENCOUNTER → 2020-02-01 | Outpatient (CLI) | payer MEDICARE, OTHER ==
[2020-02-01 16:26] LABS: Basophils # (A) 0.1 k/uL (0-0.2); Basophils % (A) 1 %; Eosinophils # (A) 0.2 k/uL (0-0.7); Eosinophils % (A) 2 %; HCT 42.8 % (39.0-53.0); Lymphocytes # (A) 2.2 k/uL (1.0-4.8); Lymphocytes % (A) 24 %; MCH 30.4 pg (25.0-35.0); MCHC 32.7 g/dL (31.0-37.0); MCV 93.1 fL (80.0-100.0); Mean Platelet Volume 8.1; Monocytes # (A) 0.5 k/uL (0-1.0); Monocytes % (A) 5 %; Neutrophils # (A) 6.1 k/uL (1.3-7.7); Neutrophils % (A) 67 %; Platelet Count 242 k/uL (150-450); RDW 12.9 % (11.5-15.5); WBC 9.1 k/uL (3.8-10.6)
[2020-02-02 04:42] LABS: ALT 12 U/L (10-49); AST 16 U/L (14-35); African American GFR (CKD) 87.1 (60.0-200.0); Albumin/Globulin Ratio 1.33 (1.60-3.17); Alkaline Phosphatase 73 U/L (41-126); BUN/Creat Ratio 8.18 Ratio (12.00-20.00); C Reactive Protein <0.4 mg/dL (0.0-0.8); Calcium 8.9 mg/dL (8.7-10.3); Carbon Dioxide 29.8 mmol/L (21.6-31.8); Chloride 102 mmol/L (96-109); Globulin 2.7 g/dL (1.6-3.3); Glucose 346 mg/dL (70-110); Non-African American GFR(CKD) 75.2 (60.0-200.0); Potassium 4.2 mmol/L (3.5-5.5); Sodium 137 mmol/L (135-145); Total Bilirubin 0.8 mg/dL (0.3-1.2); Total Protein 6.3 g/dL (6.2-8.2)
== END | disposition home or self-care (01) ==
LOC: LABWHC1 15:13
PROVIDERS: ATTEND Physician Assistant
DX: K50.80 Crohn's disease of both small and large intestine without complications (principal)
CPT/HCPCS: 36415; 80053; 82306; 83993; 85025; 86140

== ENCOUNTER → 2020-12-29 | Outpatient (CLI) | payer MEDICARE, OTHER ==
[2020-12-29 16:26] LABS: Appearance,Urine Turbid (Clear); Bacteria,Urine Occasional /hpf; Bilirubin,Urine Negative (Negative); Blood,Urine Large (Negative); Color,Urine Dark Brown; Glucose,Urine (UA) 1+ (Negative); Ketones,Urine Negative (Negative); Leukocyte Esterase,Urine Trace (Negative); Mucus,Urine Many /hpf; Nitrite,Urine Negative (Negative); PH, Urine 5.5 (5.0-8.0); Protein,Urine 2+ (Negative); RBC,Urine >182 /hpf (0-5); Specific Gravity,Urine 1.033 (1.001-1.035); Squamous Epithelial Cell,Urine 4 /hpf (0-4); Urobilinogen,Urine <2.0 mg/dL (<2.0); WBC,Urine 22 /hpf (0-5)
[2020-12-29 23:19] LABS: Basophils # (A) 0.06 X 10*3/uL (0.00-0.10); Basophils % (A) 0.7 %; Eosinophils # (A) 0.14 X 10*3/uL (0.04-0.35); Eosinophils % (A) 1.7 %; HCT 37.8 % (39.6-50.0); HGB 12.3 g/dL (13.0-17.0); Lymphocytes # (A) 2.12 X 10*3/uL (0.90-5.00); Lymphocytes % (A) 26.3 %; MCH 31.9 pg (27.0-32.0); MCHC 32.5 g/dL (32.0-37.0); MCV 98.2 fL (80.0-97.0); Mean Platelet Volume 11.1 fL (9.5-12.2); Monocytes # (A) 0.63 X 10*3/uL (0.20-1.00); Monocytes % (A) 7.8 %; Neutrophils # (A) 5.08 X 10*3/uL (1.80-7.70); Neutrophils % (A) 63.1 %; Platelet Count 284 X 10*3/uL (140-440); RBC 3.85 X 10*6/uL (4.40-5.60); RDW 13.9 % (11.5-14.5); WBC 8.06 X 10*3/uL (4.50-10.00)
[2020-12-30 04:54] LABS: % Iron Saturation 13.59 (15.00-50.00); African American GFR (CKD) 97.1 (60.0-200.0); Albumin 3.6 g/dL (3.8-4.9); Albumin/Globulin Ratio 1.38 (1.60-3.17); Anion Gap 9.6 mmol/L (4.00-12.00); Calcium 8.9 mg/dL (8.7-10.3); Carbon Dioxide 26.4 mmol/L (21.6-31.8); Ferritin 38.7 ng/mL (22.0-322.0); Globulin 2.6 g/dL (1.6-3.3); Non-African American GFR(CKD) 83.8 (60.0-200.0); Phosphorus 4.1 mg/dL (2.4-5.1); Potassium 4.7 mmol/L (3.5-5.5); Total Bilirubin 0.5 mg/dL (0.30-1.20); Total Protein 6.2 g/dL (6.2-8.2); Uric Acid 3.6 mg/dL (3.7-8.7)
== END | disposition home or self-care (01) ==
LOC: LABWHC1 15:16
PROVIDERS: ATTEND Nurse Practitioner Family
DX: N18.9 Chronic kidney disease, unspecified (principal); E55.9 Vitamin D deficiency, unspecified; D64.9 Anemia, unspecified; N39.0 Urinary tract infection, site not specified; N25.81 Secondary hyperparathyroidism of renal origin; M10.9 Gout, unspecified; R80.9 Proteinuria, unspecified
CPT/HCPCS: 36415; 80053; 81001; 82043; 82306; 82570; 82728; 83540; 83550; 83735; 83970; 84100; 84550; 85025

== ENCOUNTER → 2021-02-07 | Outpatient (CLI) | payer MEDICARE, OTHER ==
[2021-02-07 13:24] LABS: Basophils % (A) 0 %; Eosinophils # (A) 0.1 k/uL (0-0.7); Eosinophils % (A) 2 %; HCT 37.8 % (39.0-53.0); HGB 12.3 gm/dL (13.0-17.5); Lymphocytes # (A) 1.9 k/uL (1.0-4.8); Lymphocytes % (A) 22 %; MCH 32.1 pg (25.0-35.0); MCHC 32.6 g/dL (31.0-37.0); MCV 98.5 fL (80.0-100.0); Mean Platelet Volume 8.1; Monocytes # (A) 0.4 k/uL (0-1.0); Monocytes % (A) 4 %; Neutrophils % (A) 71 %; Platelet Count 239 k/uL (150-450); RBC 3.83 m/uL (4.30-5.90); RDW 14.1 % (11.5-15.5); WBC 8.4 k/uL (3.8-10.6)
[2021-02-07 13:50] LABS: ALT 15 U/L (4-49); AST 24 U/L (17-59); African American GFR (CKD) >90 (>60 ml/min/1.73 sqM); Alkaline Phosphatase 70 U/L (38-126); Anion Gap 2 mmol/L; Blood Urea Nitrogen 11 mg/dL (9-20); Calcium 8.4 mg/dL (8.4-10.2); Carbon Dioxide 30 mmol/L (22-30); Chloride 103 mmol/L (98-107); Glucose 266 mg/dL (74-99); Non-African American GFR(CKD) >90 (>60 ml/min/1.73 sqM); Sodium 135 mmol/L (137-145); Total Bilirubin 0.7 mg/dL (0.2-1.3)
--- NOTE | 2021-02-07 14:28 | US ---
EXAMINATION TYPE: US kidneys/renal and bladder DATE OF EXAM: 02/07/2021 COMPARISON: CT dated 02/05/2018 CLINICAL HISTORY: N18.2 CKD Stage II. 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 The right kidney shows normal cortica l medullary differentiation No nephrolithiasis is seen. No masses are identified. The urinary bladd er is anechoic. IMPRESSION: Solitary enlarged right kidney
== END | disposition home or self-care (01) ==
LOC: RADUSWWP 12:13
PROVIDERS: ATTEND Internal Medicine
DX: N18.2 Chronic kidney disease, stage 2 (mild) (principal); Q60.0 Renal agenesis, unilateral
CPT/HCPCS: 76770; 80053; 85025

== ENCOUNTER → 2021-04-28 | Outpatient (CLI) | payer MEDICARE, OTHER ==
[2021-04-28 23:42] LABS: Complement C3 90.9 mg/dL (80.0-207.0)
[2021-04-28 23:44] LABS: % Iron Saturation 10.44 (15.00-50.00); African American GFR (CKD) 102.1 (60.0-200.0); Albumin 3.6 g/dL (3.8-4.9); Albumin/Globulin Ratio 1.26 (1.60-3.17); Anion Gap 10.7 mmol/L (10.00-18.00); BUN/Creat Ratio 11.16 Ratio (12.00-20.00); Blood Urea Nitrogen 10.7 mg/dL (9.0-27.0); Calcium 9.2 mg/dL (8.7-10.3); Carbon Dioxide 25.8 mmol/L (20.0-27.5); Globulin 2.9 g/dL (1.6-3.3); Magnesium 1.8 mg/dL (1.5-2.4); Non-African American GFR(CKD) 88.1 (60.0-200.0); Phosphorus 3.2 mg/dL (2.4-5.1); Potassium 4.1 mmol/L (3.5-5.5); Total Bilirubin 0.5 mg/dL (0.30-1.20); Total Protein 6.5 g/dL (6.2-8.2); Uric Acid 3.3 mg/dL (3.7-8.7)
[2021-04-28 23:51] LABS: Hepatitis A Antibody IgM Nonreactive (Nonreactive); Hepatitis B Core IgM Nonreactive (Nonreactive); Hepatitis B Surface Antigen Nonreactive (Nonreactive); Hepatitis C IgG Antibody Nonreactive (Nonreactive)
[2021-04-29 00:28] LABS: Ferritin 21.6 ng/mL (22.0-322.0)
[2021-04-29 01:26] LABS: Basophils # (A) 0.07 X 10*3/uL (0.00-0.10); Eosinophils # (A) 0.19 X 10*3/uL (0.04-0.35); Eosinophils % (A) 2.7 %; HCT 41.6 % (39.6-50.0); Immature Grans, Automated 0.4 %; Lymphocytes # (A) 2.02 X 10*3/uL (0.90-5.00); Lymphocytes % (A) 28.5 %; MCH 29.5 pg (27.0-32.0); MCHC 31.3 g/dL (32.0-37.0); MCV 94.3 fL (80.0-97.0); Mean Platelet Volume 11.3 fL (9.5-12.2); Monocytes # (A) 0.53 X 10*3/uL (0.20-1.00); Monocytes % (A) 7.5 %; NRBC Per 100 WBC 0 /100 WBCS (0.0-0.0); Neutrophils # (A) 4.25 X 10*3/uL (1.80-7.70); Neutrophils % (A) 59.9 %; Platelet Count 329 X 10*3/uL (140-440); RBC 4.41 X 10*6/uL (4.40-5.60); RDW 14.6 % (11.5-14.5); WBC 7.09 X 10*3/uL (4.50-10.00)
[2021-04-29 01:31] LABS: Bacteria,Urine None Seen /HPF (None Seen); RBC,Urine >100 /HPF (0-2); Yeast (UA) Present /LPF (None Seen)
[2021-04-29 01:32] LABS: Appearance,Urine Cloudy (Clear); Bilirubin,Urine Negative (Negative); Blood,Urine Large (Negative); Color,Urine Orange (Yellow); Ketones,Urine Trace mg/dL (Negative); Leukocyte Esterase,Urine Trace (Negative); Nitrite,Urine Negative (Negative); Protein,Urine 30 (Negative); Specific Gravity,Urine >1.035 (1.001-1.030); Urobilinogen,Urine 0.2 (0.2,1.0)
[2021-04-29 08:56] LABS: DNA Double-Stranded NEGATIVE (NEGATIVE)
== END | disposition home or self-care (01) ==
LOC: LABWHC1 16:57
PROVIDERS: ATTEND Internal Medicine
DX: N18.2 Chronic kidney disease, stage 2 (mild) (principal)
CPT/HCPCS: 36415; 80053; 80074; 81001; 82043; 82306; 82570; 82728; 83516; 83540; 83550; 83735; 83883; 83970; 84100; 84550; 85025; 86038; 86160; 86162; 86225; 86255; 86334

== ENCOUNTER → 2021-06-08 | Outpatient (CLI) | payer MEDICARE, OTHER ==
[2021-06-08 23:19] LABS: Basophils # (A) 0.07 X 10*3/uL (0.00-0.10); Basophils % (A) 0.9 %; Eosinophils # (A) 0.12 X 10*3/uL (0.04-0.35); Eosinophils % (A) 1.5 %; HCT 41.5 % (39.6-50.0); HGB 13.5 g/dL (13.0-17.0); Immature Grans, Automated 0.4 %; Lymphocytes # (A) 2.29 X 10*3/uL (0.90-5.00); MCH 31.1 pg (27.0-32.0); MCHC 32.5 g/dL (32.0-37.0); MCV 95.6 fL (80.0-97.0); Mean Platelet Volume 11.3 fL (9.5-12.2); Monocytes # (A) 0.69 X 10*3/uL (0.20-1.00); Monocytes % (A) 8.4 %; NRBC Per 100 WBC 0 /100 WBCS (0.0-0.0); Neutrophils # (A) 4.98 X 10*3/uL (1.80-7.70); Neutrophils % (A) 60.8 %; Platelet Count 301 X 10*3/uL (140-440); RBC 4.34 X 10*6/uL (4.40-5.60); RDW 15.4 % (11.5-14.5); WBC 8.18 X 10*3/uL (4.50-10.00)
[2021-06-08 23:21] LABS: Albumin 3.7 g/dL (3.8-4.9); Albumin/Globulin Ratio 1.18 (1.60-3.17); Anion Gap 7.2 mmol/L (10.00-18.00); BUN/Creat Ratio 11.59 Ratio (12.00-20.00); Blood Urea Nitrogen 11.5 mg/dL (9.0-27.0); Carbon Dioxide 26.7 mmol/L (20.0-27.5); Globulin 3.1 g/dL (1.6-3.3); Non-African American GFR(CKD) 84.6 (60.0-200.0); Potassium 4.6 mmol/L (3.5-5.5); Total Bilirubin 0.6 mg/dL (0.30-1.20); Total Protein 6.8 g/dL (6.2-8.2)
== END | disposition home or self-care (01) ==
LOC: LABWHC1 14:11
PROVIDERS: ATTEND Internal Medicine
DX: Z51.81 Encounter for therapeutic drug level monitoring (principal); K50.80 Crohn's disease of both small and large intestine without complications
CPT/HCPCS: 36415; 80053; 85025

== ENCOUNTER → 2021-09-12 | Outpatient (CLI) | payer MEDICARE, OTHER ==
--- NOTE | 2021-09-12 19:06 | CT ---
EXAMINATION TYPE: CT abdomen pelvis wo con CT DLP: 330.20 mGycm, Automated exposure control for dose reduction was used. DATE OF EXAM: 09/12/2021 6:28 PM COMPARISON: 02/05/2018 CLINICAL INDICATION:Male, 55 years old with history of R80.9 PROTEINURIA; Proteinuria. Order also ind icates to comment on pelvic bone lesion. TECHNIQUE: Axial CT of the abdomen and pelvis. Sagittal and coronal reformats were created on a [employer] workstation. Contrast used: None Oral contrast used: without Oral Contrast FINDINGS: LOWER CHEST: Right paraspinal lesion next to the right aspect of the T12 vertebrae measuring 1.7 x 2. 9 cm which is bigger than 2018 where it measured 1.2 x 2.0 cm in 2018 and measures 22 Hounsfield unit s suggestive of complex fluid. ABDOMEN LIVER: Unremarkable GALLBLADDER AND BILE DUCTS: Unremarkable. PANCREAS: Unremarkable. SPLEEN: Unremarkable. ADRENAL GLANDS: Unremarkable. KIDNEYS AND URETERS: : Left kidney is absent and may be atrophic or surgically absent. Right kidney i s grossly unremarkable No evidence of hydronephrosis. PELVIS BLADDER: Incompletely distended but grossly unremarkable. REPRODUCTIVE: Unremarkable. ABDOMEN & PELVIS STOMACH AND BOWEL: Postsurgical changes to the large bowel with circumferential wall thickening in th e right lower quadrant measuring up to 6 mm. This is near the anastomotic site. No evidence of bowel obstruction. PERITONEUM: No evidence of pneumoperitoneum or free fluid. VASCULATURE: No evidence of aortic aneurysm. MUSCULOSKELETAL: No acute osseous abnormalities, multilevel disc degeneration changes. Lucent/lytic l esions within the iliac crests are unchanged from prior in 2019. LYMPH NODES: No gross evidence for lymphadenopathy. SOFT TISSUE/ABDOMINAL WALL: Unremarkable IMPRESSION: 1. Right kidney without evidence of hydronephrosis. Absent left kidney. 2. Posttraumatic changes to the large bowel with circumferential large bowel thickening near the anas tomotic site and just proximal to it, correlate for colitis. 3. Right lateral T12 vertebral body soft tissue lesion. This is mildly larger than 2018. This does me asures 22 Hounsfield units suggestive of complex fluid. Clinical correlation and consider further carolee luation with MRI with and without IV contrast is recommended. Consider MRI of the lumbar spine with a nd without IV contrast.
== END | disposition home or self-care (01) ==
LOC: RADCTMAIN 18:07
PROVIDERS: ATTEND Internal Medicine Nephrology
DX: R80.9 Proteinuria, unspecified (principal); K63.89 Other specified diseases of intestine
CPT/HCPCS: 74176

== ENCOUNTER → 2021-09-28 | Outpatient (CLI) | payer MEDICARE, OTHER ==
[2021-09-28 16:53] LABS: HCT 42.7 % (39.0-53.0); HGB 13.7 gm/dL (13.0-17.5); MCH 31.9 pg (25.0-35.0); MCHC 32.1 g/dL (31.0-37.0); MCV 99.2 fL (80.0-100.0); Platelet Count 267 k/uL (150-450); RBC 4.31 m/uL (4.30-5.90); RDW 13.6 % (11.5-15.5); WBC 8.8 k/uL (3.8-10.6)
[2021-09-28 17:00] LABS: Prothrombin Time 11.2 sec (9.0-12.0)
== END | disposition home or self-care (01) ==
LOC: LABWHC1 16:35
PROVIDERS: ATTEND Internal Medicine
DX: Z01.812 Encounter for preprocedural laboratory examination (principal)
CPT/HCPCS: 36415; 85027; 85610; 85730

== ENCOUNTER → 2022-07-27 | Outpatient (CLI) | payer MEDICARE, OTHER ==
[2022-07-28 02:32] LABS: Basophils # (A) 0.09 X 10*3/uL (0.00-0.10); Eosinophils # (A) 0.23 X 10*3/uL (0.04-0.35); Eosinophils % (A) 2.5 %; HCT 45.5 % (39.6-50.0); HGB 14.8 d/dL (12.0-15.0); Lymphocytes # (A) 2.44 X 10*3/uL (0.90-5.00); Lymphocytes % (A) 26.3 %; MCH 31.8 pg (27.0-32.0); MCHC 32.5 d/dL (32.0-37.0); MCV 97.6 FL (80.0-97.0); Monocytes # (A) 0.88 X 10*3/uL (0.20-1.00); Monocytes % (A) 9.5 %; NRBC Per 100 WBC 0 X 10*3/uL (0.00-0.01); Neutrophils # (A) 5.63 X 10*3/uL (1.80-7.70); Neutrophils % (A) 60.5 %; Platelet Count 260 X 10*3/uL (140-440); RBC 4.66 X 10*6/uL (4.40-5.60); RDW 14.1 % (11.5-14.5); WBC 9.29 X 10*3/uL (4.50-10.00)
[2022-07-28 02:53] LABS: ALT 21 U/L (10-49); AST 27 U/L (14-35); Albumin 3.6 d/dL (3.8-4.9); Albumin/Globulin Ratio 1.44 Ratio (1.60-3.17); Alkaline Phosphatase 73 U/L (41-126); BUN/Creat Ratio 10.91 Ratio (12.00-20.00); Calcium 8.9 mg/dL (8.7-10.3); Chloride 108 mmol/L (96-109); Ferritin 56.2 ng/mL (22.0-322.0); Globulin 2.5 d/dL (1.6-3.3); Glucose 54 mg/dL (70-110); Magnesium 1.9 mg/dL (1.5-2.4); Phosphorus 3.5 mg/dL (2.4-5.1); Potassium 4.1 mmol/L (3.5-5.5); Sodium 144 mmol/L (135-145); Total Bilirubin 0.5 mg/dL (0.3-1.2); Total Protein 6.1 d/dL (6.2-8.2); Uric Acid 3.7 mg/dL (3.7-8.7)
[2022-07-28 05:31] LABS: Appearance,Urine Clear (Clear); Bilirubin,Urine Negative (Negative); Blood,Urine Negative (Negative); Color,Urine Yellow (Yellow); Ketones,Urine Negative (Negative); Nitrite,Urine Negative (Negative); PH, Urine 6.5; Specific Gravity,Urine 1.029 (1.001-1.030); Urobilinogen,Urine 0.2
[2022-07-28 06:02] LABS: Microalbumin Creatinine Ratio <11 mg/g Cr (0-30)
== END | disposition home or self-care (01) ==
LOC: LABWHC1 16:06
PROVIDERS: ATTEND Nurse Practitioner Family
DX: N25.81 Secondary hyperparathyroidism of renal origin (principal); N18.2 Chronic kidney disease, stage 2 (mild); D63.1 Anemia in chronic kidney disease; N39.0 Urinary tract infection, site not specified; E55.9 Vitamin D deficiency, unspecified; M10.9 Gout, unspecified
CPT/HCPCS: 36415; 80053; 81003; 82043; 82306; 82570; 82728; 83735; 83970; 84100; 84550; 85025

== ENCOUNTER → 2022-10-15 | Outpatient (CLI) | payer MEDICARE, OTHER ==
[2022-10-15 07:51] LABS: African American GFR (CKD) >90 (>60 ml/min/1.73 sqM); Blood Urea Nitrogen 12 mg/dL (9-20); Non-African American GFR(CKD) >90 (>60 ml/min/1.73 sqM)
--- NOTE | 2022-10-15 08:55 | CT ---
EXAMINATION TYPE: CT chest w con DATE OF EXAM: 10/15/2022 COMPARISON: 10/13/2021 HISTORY: Pulmonary nodule CT DLP: 242.5 mGycm Automated exposure control for dose reduction was used. CONTRAST: CT scan of the chest is performed with IV Contrast, patient injected with 100 mL of Isovue 300. FINDINGS: LUNGS: 3 to 4 mm left lower lobe pulmonary nodule is identified image 39 sequence 4 and is unchanged from prior study. No additional pulmonary nodule seen. Hyperinflation compatible with COPD. There is no pleural effusion or pneumothorax seen. The tracheobronchial tree is patent. MEDIASTINUM: There are no greater than 1 cm hilar or mediastinal lymph nodes. No pericardial effusi on is seen. Ascending thoracic aortic aneurysm measuring 4.2 cm AP dimension. Overall stable appearan ce relative to the prior study. The heart is not enlarged. UPPER ABDOMEN: No significant abnormality appreciated. OTHER: No additional significant abnormality is seen. IMPRESSION: 1. Stable left lower lobe pulmonary nodule. 2. Stable ascending thoracic aortic aneurysm.
== END | disposition home or self-care (01) ==
LOC: RADCTMAIN 07:15
PROVIDERS: ATTEND Internal Medicine
DX: I71.21 Aneurysm of the ascending aorta, without rupture (principal); J98.4 Other disorders of lung; R91.1 Solitary pulmonary nodule
CPT/HCPCS: 82565; 84520; 71260; 36415; Q9967

== ENCOUNTER → 2022-12-15 | Outpatient (CLI) | payer MEDICARE, OTHER ==
[2022-12-15 23:09] LABS: Blood Urea Nitrogen 12.4 mg/dL (9.0-27.0); Glucose 141 mg/dL (70-110)
[2022-12-15 23:10] LABS: ALT 19 U/L (10-49); AST 23 U/L (14-35); Albumin 3.7 d/dL (3.8-4.9); Albumin/Globulin Ratio 1.28 Ratio (1.60-3.17); Alkaline Phosphatase 83 U/L (41-126); Basophils # (A) 0.09 X 10*3/uL (0.00-0.10); Basophils % (A) 1.1 %; Calcium 9.2 mg/dL (8.7-10.3); Carbon Dioxide 27.9 mmol/L (21.6-31.8); Chloride 103 mmol/L (96-109); Eosinophils # (A) 0.18 X 10*3/uL (0.04-0.35); Eosinophils % (A) 2.2 %; Globulin 2.9 d/dL (1.6-3.3); HGB 15.3 d/dL (13.0-17.0); Lymphocytes # (A) 2.58 X 10*3/uL (0.90-5.00); Lymphocytes % (A) 31.7 %; MCH 31.2 pg (27.0-32.0); MCHC 32.6 d/dL (32.0-37.0); MCV 95.9 FL (80.0-97.0); Mean Platelet Volume 10.7 FL (9.5-12.2); Monocytes # (A) 0.64 X 10*3/uL (0.20-1.00); Monocytes % (A) 7.9 %; NRBC Per 100 WBC 0 X 10*3/uL (0.00-0.01); Neutrophils # (A) 4.63 X 10*3/uL (1.80-7.70); Neutrophils % (A) 56.7 %; Platelet Count 269 X 10*3/uL (140-440); Potassium 4.6 mmol/L (3.5-5.5); RDW 13.2 % (11.5-14.5); Sodium 140 mmol/L (135-145); Total Bilirubin 0.7 mg/dL (0.3-1.2); Total Protein 6.6 d/dL (6.2-8.2); WBC 8.15 X 10*3/uL (4.50-10.00)
== END | disposition home or self-care (01) ==
LOC: LABWHC1 10:22
PROVIDERS: ATTEND Internal Medicine
DX: Z51.81 Encounter for therapeutic drug level monitoring (principal); K50.80 Crohn's disease of both small and large intestine without complications; Z79.899 Other long term (current) drug therapy
CPT/HCPCS: 36415; 80053; 85025

== ENCOUNTER → 2023-05-13 | Outpatient (CLI) | payer MEDICARE, OTHER ==
[2023-05-13 18:51] LABS: HCT 42.8 % (39.6-50.0); HGB 14.2 g/dL (13.0-17.0); MCH 30.7 pg (27.0-32.0); MCHC 33.2 g/dL (32.0-37.0); MCV 92.6 FL (80.0-97.0); Mean Platelet Volume 10.6 FL (9.5-12.2); NRBC Per 100 WBC 0 X 10*3/uL (0.00-0.01); Platelet Count 261 X 10*3/uL (140-440); RBC 4.62 X 10*6/uL (4.40-5.60); RDW 14.1 % (11.5-14.5); WBC 10.07 X 10*3/uL (4.50-10.00)
[2023-05-13 20:15] LABS: Appearance,Urine Clear (Clear); Bilirubin,Urine Negative (Negative); Blood,Urine Negative (Negative); Color,Urine Yellow (Yellow); Ketones,Urine Negative (Negative); Nitrite,Urine Negative (Negative); Specific Gravity,Urine >1.035 (1.001-1.030); Urobilinogen,Urine 0.2
[2023-05-13 22:24] LABS: Microalbumin Creatinine Ratio <16 mg/g Cr (0-30); Urine Creatinine 73.8 mg/dL (39.0-259.0)
[2023-05-13 22:55] LABS: ALT 12 U/L (10-49); AST 17 U/L (14-35); Albumin 3.7 g/dL (3.8-4.9); Albumin/Globulin Ratio 1.42 Ratio (1.60-3.17); Alkaline Phosphatase 79 U/L (41-126); BUN/Creat Ratio 9.55 Ratio (12.00-20.00); Blood Urea Nitrogen 10.5 mg/dL (9.0-27.0); Calcium 9.2 mg/dL (8.7-10.3); Carbon Dioxide 26.7 mmol/L (21.6-31.8); Chloride 107 mmol/L (96-109); Ferritin 47.1 ng/mL (22.0-322.0); Globulin 2.6 g/dL (1.6-3.3); Glucose 145 mg/dL (70-110); Iron 69 UG/DL (65-175); Magnesium 1.9 mg/dL (1.5-2.4); Phosphorus 3.5 mg/dL (2.4-5.1); Potassium 4.4 mmol/L (3.5-5.5); Sodium 142 mmol/L (135-145); Total Bilirubin 0.4 mg/dL (0.3-1.2); Total Iron Binding Capacity 276 UG/DL (228-460); Total Protein 6.3 g/dL (6.2-8.2); Uric Acid 3.8 mg/dL (3.7-8.7)
== END | disposition home or self-care (01) ==
LOC: LABWHC1 14:20
PROVIDERS: ATTEND Family Medicine
DX: N18.2 Chronic kidney disease, stage 2 (mild) (principal); D63.1 Anemia in chronic kidney disease; N39.0 Urinary tract infection, site not specified; N25.81 Secondary hyperparathyroidism of renal origin; E55.9 Vitamin D deficiency, unspecified; M10.9 Gout, unspecified; R80.9 Proteinuria, unspecified
CPT/HCPCS: 36415; 80053; 81003; 82043; 82306; 82570; 82728; 83540; 83550; 83735; 83970; 84100; 84550; 85027

== ENCOUNTER → 2023-09-19 | Outpatient (CLI) | payer MEDICARE, OTHER ==
[2023-09-19 09:00] LABS: African American GFR (CKD) >90 (>60 ml/min/1.73 sqM); Blood Urea Nitrogen 16 mg/dL (9-20); Non-African American GFR(CKD) 80 (>60 ml/min/1.73 sqM)
--- NOTE | 2023-09-19 11:23 | CT ---
EXAMINATION TYPE: CT chest w con DATE OF EXAM: 09/19/2023 COMPARISON: 10/15/2022, 10/13/2021, CT abdomen 12/09/2017 HISTORY: lung nodule CT DLP: 245.50 mGycm Automated exposure control for dose reduction was used. TECHNIQUE: CT scan of the chest is performed with IV Contrast, patient injected with 100 mL of Isovue 300. MIP Images are created on CT scanner and reviewed. 3D reconstructed images are created on an independent workstation and reviewed. FINDINGS: LUNGS: 3 mm left lower lobe pulmonary micronodule is unchanged from prior study. No additional pulmo nary nodule seen. Hyperinflation compatible with COPD. There is no pleural effusion or pneumothorax s een. The tracheobronchial tree is patent. Biapical pleural thickening or scarring. MEDIASTINUM: There are no greater than 1 cm hilar or mediastinal lymph nodes. No pericardial effusion is seen. Ascending thoracic aortic aneurysm measuring 4.2 cm AP dimension. Overall stable appearance relative to the prior study. The heart is not enlarged. OTHER: Along the right paraspinal line image 62 series 3 there is a 2.5 cm soft tissue nodule again n oted. Left kidney is absent within the [id number]. Multilevel degenerative changes. Small hiatal h ernia. IMPRESSION: 1. Stable left lower lobe pulmonary micronodule. Has a benign appearance, recommend [address] scan according to Fleischner society guidelines as clinically warranted. 2. Stable ascending thoracic aortic aneurysm measuring 4.2 cm in greatest dimension. 3. Right paraspinal soft tissue mass measuring 2.5 cm in greatest axis is similar in size from the ex am 2022 and 2021 but increased in size from the exam of 2018. 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 Follow-up MRI could be obtained for further evaluation. Follow-up recommendations for incidental pulmonary nodules are per [employer]?s [place] [employer] or [employer].
== END | disposition home or self-care (01) ==
LOC: RADCTMAIN 08:12
PROVIDERS: ATTEND Internal Medicine
DX: I71.21 Aneurysm of the ascending aorta, without rupture (principal); J98.4 Other disorders of lung; R91.1 Solitary pulmonary nodule; M85.69 Other cyst of bone, multiple sites
CPT/HCPCS: 82565; 84520; 71260; 36415; Q9967

== ENCOUNTER → 2023-10-19 | Outpatient (CLI) | payer MEDICARE, OTHER ==
[2023-10-19 23:28] LABS: Appearance,Urine Clear (Clear); Bilirubin,Urine Negative (Negative); Blood,Urine Negative (Negative); Color,Urine Yellow (Yellow); Ketones,Urine Negative (Negative); Nitrite,Urine Negative (Negative); Specific Gravity,Urine >1.035 (1.001-1.030); Urobilinogen,Urine 0.2
[2023-10-20 06:40] LABS: HCT 44.1 % (39.6-50.0); HGB 14.6 g/dL (13.0-17.0); MCH 31.2 pg (27.0-32.0); MCHC 33.1 g/dL (32.0-37.0); MCV 94.2 FL (80.0-97.0); Mean Platelet Volume 10.8 FL (9.5-12.2); NRBC Per 100 WBC 0 X 10*3/uL (0.00-0.01); Platelet Count 213 X 10*3/uL (140-440); RBC 4.68 X 10*6/uL (4.40-5.60); RDW 13.6 % (11.5-14.5); WBC 8.31 X 10*3/uL (4.50-10.00)
[2023-10-20 07:05] LABS: ALT 13 U/L (10-49); AST 19 U/L (14-35); Albumin 3.7 g/dL (3.8-4.9); Albumin/Globulin Ratio 1.48 Ratio (1.60-3.17); Alkaline Phosphatase 73 U/L (41-126); Calcium 8.4 mg/dL (8.7-10.3); Carbon Dioxide 25.9 mmol/L (21.6-31.8); Chloride 106 mmol/L (96-109); Globulin 2.5 g/dL (1.6-3.3); Glucose 157 mg/dL (70-110); LDL Cholesterol,Calculated 25.8 mg/dL (0.0-131.0); Magnesium 1.9 mg/dL (1.5-2.4); Phosphorus 2.6 mg/dL (2.4-5.1); Potassium 4.4 mmol/L (3.5-5.5); Sodium 140 mmol/L (135-145); Total Bilirubin 0.5 mg/dL (0.3-1.2); Total Protein 6.2 g/dL (6.2-8.2)
[2023-10-20 08:29] LABS: % Iron Saturation 17.47 (15.00-50.00); Ferritin 62.4 ng/mL (22.0-322.0); Iron 47 UG/DL (65-175); Total Iron Binding Capacity 269 UG/DL (228-460)
[2023-10-20 13:07] LABS: Microalbumin Creatinine Ratio <9 mg/g Cr (0-30)
== END | disposition home or self-care (01) ==
LOC: LABWHC1 09:11
PROVIDERS: ATTEND Internal Medicine Nephrology
DX: N18.2 Chronic kidney disease, stage 2 (mild)
CPT/HCPCS: 36415; 80053; 80061; 81003; 82043; 82306; 82570; 82728; 83540; 83550; 83735; 83970; 84100; 84550; 85027

== ENCOUNTER → 2024-07-31 | Outpatient (CLI) | payer MEDICARE, OTHER ==
[2024-07-31 15:12] LABS: Basophils # (A) 0.07 X 10*3/uL (0.00-0.10); Basophils % (A) 0.9 %; Eosinophils # (A) 0.17 X 10*3/uL (0.04-0.35); Eosinophils % (A) 2.2 %; HCT 43.4 % (39.6-50.0); HGB 14.2 g/dL (13.0-17.0); Lymphocytes # (A) 1.65 X 10*3/uL (0.90-5.00); Lymphocytes % (A) 21.2 %; MCH 30.1 pg (27.0-32.0); MCHC 32.7 g/dL (32.0-37.0); MCV 91.9 FL (80.0-97.0); Mean Platelet Volume 10.4 FL (9.5-12.2); Monocytes # (A) 0.56 X 10*3/uL (0.20-1.00); Monocytes % (A) 7.2 %; NRBC Per 100 WBC 0 X 10*3/uL (0.00-0.01); Neutrophils % (A) 68.2 %; Platelet Count 225 X 10*3/uL (140-440); RBC 4.72 X 10*6/uL (4.40-5.60); RDW 13.3 % (11.5-14.5); WBC 7.77 X 10*3/uL (4.50-10.00)
[2024-07-31 15:25] LABS: ALT 15 U/L (10-49); AST 21 U/L (14-35); Albumin 3.5 g/dL (3.8-4.9); Albumin/Globulin Ratio 1.13 Ratio (1.60-3.17); Alkaline Phosphatase 67 U/L (41-126); BUN/Creat Ratio 13.82 Ratio (12.00-20.00); Blood Urea Nitrogen 15.2 mg/dL (9.0-27.0); Calcium 8.7 mg/dL (8.7-10.3); Carbon Dioxide 26.5 mmol/L (21.6-31.8); Chloride 102 mmol/L (96-109); Globulin 3.1 g/dL (1.6-3.3); Glucose 363 mg/dL (70-110); Potassium 4.6 mmol/L (3.5-5.5); Sodium 135 mmol/L (135-145); Total Bilirubin 0.7 mg/dL (0.3-1.2); Total Protein 6.6 g/dL (6.2-8.2)
== END | disposition home or self-care (01) ==
LOC: LABWHC1 10:40
PROVIDERS: ATTEND Internal Medicine
DX: K50.80 Crohn's disease of both small and large intestine without complications (principal)
CPT/HCPCS: 36415; 80053; 85025

== ENCOUNTER → 2024-09-18 | Outpatient (CLI) | payer MEDICARE, OTHER ==
[2024-09-18 09:52] LABS: African American GFR (CKD) >90 (>60 ml/min/1.73 sqM); Blood Urea Nitrogen 16 mg/dL (9-20); Non-African American GFR(CKD) >90 (>60 ml/min/1.73 sqM)
--- NOTE | 2024-09-18 12:05 | CT ---
EXAMINATION TYPE: CT chest w con DATE OF EXAM: 09/18/2024 COMPARISON: 09/19/2023 CLINICAL INDICATION: Male, 58 years old with history of J98.4 PUMONARY NODULE; PHH, Lung Nodule. TECHNIQUE: CT scan of the chest is performed with IV Contrast, patient injected with 100 ml mL of Isovue 300. M IP Images are created on CT scanner and reviewed. 3D reconstructed images are created on an [employer] workstation and reviewed. CT DLP: 296.[address] CTDI: mGy Automated exposure control for dose reduction was used. FINDINGS: LUNGS: No consolidative pneumonia. Mild emphysematous changes. Stable pulmonary micronodules. There i s a nodule in the right lower lobe medial segment measuring 9 mm. Increased in size from prior exam. Could be postinflammatory. Recommend a 1-2 month follow-up CT scan for resolution. There is no pleu ral effusion or pneumothorax seen. The tracheobronchial tree is patent. MEDIASTINUM: There are no greater than 1 cm hilar or mediastinal lymph nodes. No pericardial effusi on is seen. OTHER: Thoracic aorta measures 4.2 cm and is stable in appearance compared to prior exam compatible with mild aneurysmal dilation. Again noted is a right paraspinal soft tissue mass stable from prior exam possibly related to neuroen teric or duplication cyst. Recommend follow-up MRI. Left kidney is not seen possibly not included in the [id number]. Correlate for IMPRESSION: 1. Stable left lower lobe pulmonary micronodule. 2. Stable right paraspinal mass unchanged from prior exam but increased from exam of 2018. Most likel y related to duplication or neurenteric cyst or nerve sheath tumor. As previously noted MRI follow-up recommended. 3. Increasing density with vague nodularity medial segment right lower lobe favor atelectasis over no dule. Recommend one to two-month follow-up CT scan for confirmation. If the finding persists then CT would be recommended. 4. Stable ascending thoracic aortic aneurysm measuring 4.2 cm. Follow-up recommendations for incidental pulmonary nodules are per [employer]?s [place] [employer] or [employer]. [facility], , 09/18/2024 12:03 PM
== END | disposition home or self-care (01) ==
LOC: RADCTMAIN 09:02
PROVIDERS: ATTEND Internal Medicine
DX: J98.4 Other disorders of lung (principal); M85.69 Other cyst of bone, multiple sites; I71.21 Aneurysm of the ascending aorta, without rupture; J34.89 Other specified disorders of nose and nasal sinuses; R91.1 Solitary pulmonary nodule
CPT/HCPCS: 82565; 84520; 71260; 36415; Q9967